=== PATIENT | female | born 1985 | race African-American/Black ===

== ENCOUNTER 2016-05-13 10:46 | Emergency (ER) | payer MEDICAID ==
[2016-01-30 15:07] VITALS: BMI 43.0
[~2016-05-13 10:46] MED LIST: IBUPROFEN600 MG PO; PERCOCET 10/3251 TA1 PO
== END 2016-05-13 12:23 | disposition home or self-care (01) ==
LOC: D.ER 10:46
DX: K08.89 Other specified disorders of teeth and supporting structures (principal); I10 Essential (primary) hypertension; F17.200 Nicotine dependence, unspecified, uncomplicated

== ENCOUNTER 2016-11-05 15:39 | Emergency (ER) | payer MEDICAID ==
[2016-01-30 15:07] VITALS: BMI 43.0
== END 2016-11-05 16:27 | disposition home or self-care (01) ==
LOC: D.ER 15:39
DX: L02.211 Cutaneous abscess of abdominal wall (principal); R10.9 Unspecified abdominal pain; I10 Essential (primary) hypertension; F17.200 Nicotine dependence, unspecified, uncomplicated